=== PATIENT | male | born 1990 | race American Indian/Alaskan Native ===

== ENCOUNTER 2021-08-10 10:53 | Emergency (ER) | payer OTHER ==
[2021-08-10 11:03] VITALS: BP 126/82
[2021-08-10] MEDS ORDERED: TETANUS,DIPH,PERTUSS(ACELL) VACCINE 0.5 ML SYRINGE IM ONE (12:22)
[2021-08-10] MEDS ORDERED: HYDROcodone/ACETAMINOPHEN 10-325MG TAB PO ONE (12:22)
[2021-08-10] MEDS ORDERED: LIDOCAINE (2%) 20 MG/1 ML VIAL 20 ML MDV INFILTRATI ONE (12:22)
--- NOTE | 2021-08-10 13:51 | XRay Report ---
LEFT FINGERS 3 VIEWS INDICATION: left thumb lac. COMPARISON: None. IMPRESSION: 3 views of the left thumb are presented. Complex soft tissue laceration is noted lateral ly. A mildly comminuted fracture is identified through the distal aspect of the proximal phalanx of t he left thumb. No joint pathology. There is a tiny calcific density adjacent to the laceration and f racture site, it is unclear if this represents a chip fracture or tiny foreign body. Please correlate with the patient. Signer Name: Samuel Kaur Jr, MD Signed: 08/10/2021 1:47 PM Workstation Name: [id number]
[2021-08-10] MEDS ORDERED: ceFAZolin 1 GM VIAL IM ONE (13:53)
--- NOTE | 2021-08-10 14:43 | Emergency Department Report ---
- General Chief complaint: Wound/Laceration Stated complaint: CUT LT THUMB Time Seen by Provider: 08/10/21 12:19 Source: patient Mode of arrival: Ambulatory Limitations: No Limitations - History of Present Illness Initial comments: This is a 31-year-old male nontoxic, well nourished in appearance, no acute signs of distress presents to the ED with c/o of left thumb laceration that occurred today prior to arrival. 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 Patient denies decreased sensation or range of motion. Patient stated bleeding is under control. Denies any numbness, tingling, fever, chills, nausea, vomiting, chest pain, shortness of breath, headache or stiff neck. Patient stated allergies to sulfa. Denies any significant past medical history. Patient is that he is not up-to-date with tetanus. MD complaint: laceration -: This morning Tetanus Up to Date: no Location: LUE Severity: mild Severity scale (0 -10): 3 Quality: aching Consistency: constant Improves with: none Worsens with: none Associated symptoms: denies other symptoms Treatments Prior to Arrival: none - Related Data Previous Rx's Medication Instructions Recorded Last Taken Type Acetaminophen/Codeine [Tylenol 1 tab PO Q6H PRN #12 tab 08/10/21 Unknown Rx /Codeine # 3 tab] cephALEXin [Keflex] 500 mg PO Q6HR #28 capsule 08/10/21 Unknown Rx Allergies Allergy/AdvReac Type Severity Reaction Status Date / Time Sulfa (Sulfonamide AdvReac Unknown Verified 08/10/21 10:59 Antibiotics) Abscess Boil HPI - HPI Chief Complaint: Wound/Laceration Stated Complaint: CUT LT THUMB Time Seen by Provider: 08/10/21 12:19 Home Medications: Previous Rx's Medication Instructions Recorded Last Taken Type Acetaminophen/Codeine [Tylenol 1 tab PO Q6H PRN #12 tab 08/10/21 Unknown Rx /Codeine # 3 tab] cephALEXin [Keflex] 500 mg PO Q6HR #28 capsule 08/10/21 Unknown Rx Allergies/Adverse Reactions: Allergies Allergy/AdvReac Type Severity Reaction Status Date / Time Sulfa (Sulfonamide AdvReac Unknown Verified 08/10/21 10:59 Antibiotics) ED Review of Systems ROS: Stated complaint: CUT LT THUMB Other details as noted in HPI Comment: All other systems reviewed and negative Constitutional: denies: chills, fever Eyes: denies: eye pain, eye discharge, vision change ENT: denies: ear pain, throat pain Respiratory: denies: cough, shortness of breath, wheezing Cardiovascular: denies: chest pain, palpitations Endocrine: no symptoms reported Gastrointestinal: denies: abdominal pain, nausea, diarrhea Genitourinary: denies: urgency, dysuria Musculoskeletal: denies: back pain, joint swelling, arthralgia Skin: denies: rash, lesions Neurological: denies: headache, weakness, paresthesias Psychiatric: denies: anxiety, depression Hematological/Lymphatic: denies: easy bleeding, easy bruising ED Past Medical Hx - Medications Home Medications: Home Medications Medication Instructions Recorded Confirmed Last Taken Type Acetaminophen/Codeine [Tylenol 1 tab PO Q6H PRN #12 tab 08/10/21 Unknown Rx /Codeine # 3 tab] cephALEXin [Keflex] 500 mg PO Q6HR #28 capsule 08/10/21 Unknown Rx ED Physical Exam - General Limitations: No Limitations General appearance: alert, in no apparent distress - Head Head exam: Present: atraumatic, normocephalic - Eye Eye exam: Present: normal appearance - Neck Neck exam: Present: normal inspection, full ROM. Absent: lymphadenopathy - Respiratory Respiratory exam: Absent: respiratory distress - Cardiovascular Cardiovascular Exam: Present: regular rate - Extremities Exam Extremities exam: Present: full ROM, tenderness, normal capillary refill. Absent: joint swelling - Expanded Upper Extremity Exam Left General: Present: normal inspection Shoulder Exam: Present: normal inspection, full ROM. Absent: tenderness, swelling Upper Arm exam: Present: normal inspection, full ROM. Absent: tenderness, swe lling Elbow exam: Present: normal inspection, full ROM. Absent: tenderness Forearm Wrist exam: Present: normal inspection, full ROM. Absent: tenderness, swelling, abrasion, laceration, ecchymosis, deformity, crepidus, dislocation, erythema, tenderness over anatomical snuff box, pain with axial thumb loading Hand Wrist exam: Present: normal inspection, full ROM, tenderness, laceration (Mid left thumb). Absent: swelling, abrasion, ecchymosis, deformity, crepidus, dislocation, erythema, amputation, nail avulsion, subungual hematoma Hand L/R Back: 1 - 3 cm superficial laceration Vascular: Present: normal capillary refill. Absent: vascular compromise (Neurovascular within normal limits) - Back Exam Back exam: Present: full ROM - Neurological Exam Neurological exam: Present: alert, oriented X3, normal gait - Psychiatric Psychiatric exam: Present: normal affect, normal mood - Skin Skin exam: Present: warm, dry, intact, normal color. Absent: rash ED Course Vital Signs 08/10/21 11:02 Temperature 97.8 F Pulse Rate 79 Respiratory 16 Rate Blood Pressure 126/82 [Left] O2 Sat by Pulse 96 Oximetry - Reevaluation(s) Reevaluation #1: 08/10/21 14:47 Patient is speaking in full sentences with no signs of distress noted. - Laceration /Wound Repair Left Finger Wound Location: upper extremity (Left thumb) Wound Length (cm): 3 Wound's Depth, Shape: superficial Wound Explored: clean Irrigated w/ Saline (ccs): 40 Volume Anesthetic (ccs): 6 (2% lidocaine plain) Wound Repaired With: sutures Suture Size/Type: 4:0, proline Number of Sutures: 5 Layer Closure?: No Sterile Dressing Applied?: Yes Progress: Patient soaked the finger with water and Betadine mixed. Under sterile field, I used Betadine to clean the area. I then used 40 mL of normal saline to flush the area. I then used 2% lidocaine plain and injected 6 mL to the wound. I then used a 4-0 Prolene to suture the laceration. Number of stitches 5. I then applied a sterile 4 x 4 with tape. Minimal bleeding noted but is under control. Patient tolerated procedure well with no signs of distress. ED Medical Decision Making - Radiology Data [facility] [address] [place] [address] XRay Report Signed Patient: KWAME MEDINA MR#: [id number] : 1990 Acct:[id number] Age/Sex: 31 / M ADM Date: 08/10/21 Loc: ED Attending Dr: Ordering Physician: STEVE BLANTON NP Date of Service: 08/10/21 Procedure(s): XR finger(s) 2+V LT Accession Number(s): [id number] cc: STEVE BLANTON NP Fluoro Time In Minutes: LEFT FINGERS 3 VIEWS INDICATION: left thumb lac. COMPARISON: None. IMPRESSION: 3 views of the left thumb are presented. Complex soft tissue laceration is noted laterally. A mildly comminuted fracture is identified through the distal aspect of the proximal phalanx of the left thumb. No joint p athology. There is a tiny calcific density adjacent to the laceration and fracture site, it is unclear if this represents a chip fracture or tiny foreign body. Please correlate with the patient. Signer Name: Samuel Kaur Jr, MD Signed: 08/10/2021 1:47 PM Workstation Name: [id number] Transcribed By: SENG Dictated By: SAMUEL KAUR JR, MD Electronically Authenticated By: SAMUEL KAUR JR, MD Signed Date/Time: 08/10/211346 DD/ 44 TD/TT: - Medical Decision Making This is a 31-year-old male that presents with laceration with open left thumb fracture. Patient is stable and was examined by me. The laceration suturing has been performed and has been performed and patient tolerated well. A sterile dressing has been applied. Patient received 1 g Ancef IM in the ER. Patient received tetanus booster and [place] for pain. Stated family member will drive patient home after discharge due to possible drowsiness. Patient was educated on proper wound care. Patient is discharged with Keflex and Tylenol with codeine and was instructed not to operate any machinery while taking Tylenol with codeine due to drowsiness. Patient was instructed to return in 10 days for suture removal. Patient received a OCL thumb spica splint. Post splint assessment: neurovasular intact; normal cap refill <2 second; normal sensation; denies decreaed sensation; normal ROM of digits. Patient was instructed to refer to Follow-up with a orthopedic doctor in 3-5 days or if symptoms worsen and continue return to emergency room as soon as possible. At time of discharge, the patient does not seem toxic or ill in appearance. No acute signs of distress noted. Patient agrees to discharge treatment plan of care. No further questions noted by the patient. Critical care attestation.: If time is entered above; I have spent that time in minutes in the direct care of this critically ill patient, excluding procedure time. ED Disposition Clinical Impression: Laceration Fracture of thumb, left, open Qualifiers: Encounter type: initial encounter Phalanx: distal Fracture alignment: nondisplaced Qualified Code(s): S62.525B - Nondisplaced fracture of distal phalanx of left thumb, initial encounter for open fracture Disposition: HOME / SELF CARE / HOMELESS Is pt being admited?: No Does the pt Need Aspirin: No Condition: Stable Instructions: Thumb Fracture, Cast or Splint Care, Adult, [id number], Laceration Care, Adult, Acetaminophen; Codeine tablets Additional Instructions: Follow-up with a orthopedic doctor in 3-5 days or if symptoms worsen and continue return to emergency room as soon as possible. No physical activity that extremity until cleared by orthopedic doctor Do not operate any machinery while taking Tylenol with codeine as this may cause drowsiness. Return in 10 days for suture removal. Prescriptions: cephALEXin [Keflex] 500 mg PO Q6HR #28 capsule Acetaminophen/Codeine [Tylenol /Codeine # 3 tab] 1 tab PO Q6H PRN #12 tab PRN Reason: Pain , Severe (7-10) Referrals: PRIMARY CARE, [Referring] - 3-5 Days DELANEY AGUIAR MD [Staff Physician] - 3-5 Days Time of Disposition: 14:52
== END 2021-08-10 16:27 | disposition home or self-care (01) ==
LOC: ED 10:53
DX: S62.522B Displaced fracture of distal phalanx of left thumb, initial encounter for open fracture (principal); Z88.2 Allergy status to sulfonamides; W31.89XA Contact with other specified machinery, initial encounter; Y93.89 Activity, other specified; Y92.89 Other specified places as the place of occurrence of the external cause; Y99.8 Other external cause status
CPT/HCPCS: 29130; 73140; 90471; 90715; 96372; 99283; J0690